=== PATIENT | male | born 1985 | race Caucasian/White ===

== ENCOUNTER 2016-02-24 02:37 | Emergency (ER) | payer SELFPAY ==
[~2016-02-24 02:37] MED LIST: LISINOPRIL20 MG PO; ear drops
[2016-02-24 04:15] VITALS: BP 140/92
== END 2016-02-24 05:00 | disposition left against medical advice (07) ==
LOC: ED 02:37
DX: F10.229 Alcohol dependence with intoxication, unspecified (principal); F17.210 Nicotine dependence, cigarettes, uncomplicated

== ENCOUNTER 2016-08-30 01:11 | Emergency (ER) | payer SELFPAY ==
[~2016-08-30] VITALS: Ht 180.3 cm; Wt 122.7 kg
== END 2016-08-30 03:00 | disposition home or self-care (01) ==
LOC: ED 01:11
DX: S93.401A Sprain of unspecified ligament of right ankle, initial encounter (principal); X50.1XXA Overexertion from prolonged static or awkward postures, initial encounter; S90.852A Superficial foreign body, left foot, initial encounter; W22.8XXA Striking against or struck by other objects, initial encounter; Y92.009 Unspecified place in unspecified non-institutional (private) residence as the place of occurrence of the external cause; I10 Essential (primary) hypertension; F10.20 Alcohol dependence, uncomplicated

== ENCOUNTER 2016-09-18 00:45 | Emergency (ER) | payer SELFPAY ==
[~2016-09-18] VITALS: Ht 182.9 cm; Wt 120.5 kg
[2016-09-18 00:55] VITALS: BP 119/79
== END 2016-09-18 01:30 ==
LOC: ED 00:45
DX: M25.561 Pain in right knee (principal); W19.XXXA Unspecified fall, initial encounter